=== PATIENT | male | born 1940 | race Caucasian/White ===

== ENCOUNTER 2017-06-25 08:00 | Outpatient (CLI) | payer MEDICARE, OTHER ==
[2017-06-25 14:07] LABS: ALBUMIN/GLOBULIN RATIO 1.7 (1.0-2.2); BILIRUBIN,TOTAL 0.8 mg/dL (0.2-1.0); BUN - BLOOD UREA NITROGEN 15 mg/dL (6-20); CALCIUM 9.1 mg/dL (8.5-10.3); CARBON DIOXIDE - CO2 26 mmol/L (21-32); CHLORIDE 106 mmol/L (101-111); CHOL/HDL RATIO 3.7 (<5.0); CHOLESTEROL 190 mg/dL; CREATININE 0.9 mg/dL (0.6-1.2); GFR - MDRD 82 (>89); GLUCOSE 105 mg/dL (70-100); HDL CHOLESTEROL 51 mg/dL; LDL/HDL RATIO 2.4 (<3.6); POTASSIUM 4.2 mmol/L (3.5-5.0); SODIUM 139 mmol/L (135-145); TOTAL PROTEIN 6.9 g/dL (6.7-8.2); TRIGLYCERIDES 74 mg/dL; VLDL CHOLESTEROL 15 mg/dL
[2017-06-25 14:45] LABS: BASOPHILS # (AUTO) 0.1 10^3/uL (0.0-0.1); BASOPHILS % (AUTO) 1.1 %; EOSINOPHILS # (AUTO) 0.3 10^3/uL (0.0-0.7); EOSINOPHILS % (AUTO) 4.5 %; HCT - HEMATOCRIT 45.2 % (42.0-52.0); HGB - HEMOGLOBIN 15.2 g/dL (14.0-18.0); LYMPHOCYTES # (AUTO) 1.2 10^3/uL (1.5-3.5); LYMPHOCYTES % (AUTO) 19.5 %; MEAN CORPUSCULAR HEMOGLOBIN 30.6 pg (27.0-31.0); MEAN CORPUSCULAR HGB CONC 33.6 g/dL (32.0-36.0); MEAN CORPUSCULAR VOLUME 91.2 fL (80.0-94.0); MEAN PLATELET VOLUME 9.4 fL (7.4-11.4); MONOCYTES # (AUTO) 0.5 10^3/uL (0.0-1.0); MONOCYTES % (AUTO) 8.9 %; NEUTROPHILS # (AUTO) 3.9 10^3/uL (1.5-6.6); RED BLOOD COUNT 4.96 10^6/uL (4.70-6.10); RED CELL DISTRIBUTION WIDTH 14.2 % (12.0-15.0); UNCORRECTED WHITE BLOOD COUNT 5.9 x10^3/uL; WHITE BLOOD COUNT 5.9 x10^3/uL (4.8-10.8)
== END 2017-06-25 08:01 | disposition home or self-care (01) ==
LOC: LAB.WCP 08:00
PROVIDERS: ATTEND Physician Assistant Medical
DX: I48.91 Unspecified atrial fibrillation (principal); I10 Essential (primary) hypertension; Z12.5 Encounter for screening for malignant neoplasm of prostate; R73.02 Impaired glucose tolerance (oral); E78.5 Hyperlipidemia, unspecified
CPT/HCPCS: 36415; 80053; 80061; 84443; 85025; G0103; 84153

== ENCOUNTER 2017-10-07 08:00 | Outpatient (CLI) | payer MEDICARE, OTHER ==
[2017-10-07 18:41] LABS: BASOPHILS # (AUTO) 0.1 10^3/uL (0.0-0.1); EOSINOPHILS # (AUTO) 0.2 10^3/uL (0.0-0.7); HCT - HEMATOCRIT 46.1 % (42.0-52.0); LYMPHOCYTES # (AUTO) 1.4 10^3/uL (1.5-3.5); LYMPHOCYTES % (AUTO) 17.1 %; MEAN CORPUSCULAR HEMOGLOBIN 30.4 pg (27.0-31.0); MEAN CORPUSCULAR HGB CONC 32.5 g/dL (32.0-36.0); MEAN CORPUSCULAR VOLUME 93.4 fL (80.0-94.0); MEAN PLATELET VOLUME 9.4 fL (7.4-11.4); MONOCYTES # (AUTO) 0.6 10^3/uL (0.0-1.0); MONOCYTES % (AUTO) 7.6 %; NEUTROPHILS # (AUTO) 5.6 10^3/uL (1.5-6.6); NEUTROPHILS % (AUTO) 71.3 %; NUCLEATED RED BLOOD CELLS AUTO 0.1 /100WBC; RED BLOOD COUNT 4.93 10^6/uL (4.70-6.10); RED CELL DISTRIBUTION WIDTH 13.9 % (12.0-15.0); UNCORRECTED WHITE BLOOD COUNT 7.9 x10^3/uL; WHITE BLOOD COUNT 7.9 x10^3/uL (4.8-10.8)
[2017-10-07 18:56] LABS: ALBUMIN/GLOBULIN RATIO 1.5 (1.0-2.2); BILIRUBIN,TOTAL 0.8 mg/dL (0.2-1.0); CALCIUM 9.1 mg/dL (8.5-10.3); CREATININE 0.9 mg/dL (0.6-1.2); POTASSIUM 3.7 mmol/L (3.5-5.0)
== END 2017-10-07 23:59 ==
LOC: LAB.WCP 08:00
PROVIDERS: ATTEND Family Medicine
DX: R31.9 Hematuria, unspecified (principal)
CPT/HCPCS: 36415; 80053; 85025

== ENCOUNTER 2017-10-14 13:12 | Outpatient (CLI) | payer MEDICARE, OTHER ==
[2017-10-14 19:18] LABS: BASOPHILS # (AUTO) 0.1 10^3/uL (0.0-0.1); BASOPHILS % (AUTO) 0.9 %; EOSINOPHILS # (AUTO) 0.3 10^3/uL (0.0-0.7); EOSINOPHILS % (AUTO) 3.4 %; HGB - HEMOGLOBIN 15.3 g/dL (14.0-18.0); LYMPHOCYTES # (AUTO) 1.5 10^3/uL (1.5-3.5); LYMPHOCYTES % (AUTO) 20.3 %; MEAN CORPUSCULAR HEMOGLOBIN 30.2 pg (27.0-31.0); MEAN CORPUSCULAR HGB CONC 32.6 g/dL (32.0-36.0); MEAN CORPUSCULAR VOLUME 92.7 fL (80.0-94.0); MEAN PLATELET VOLUME 9.5 fL (7.4-11.4); MONOCYTES # (AUTO) 0.4 10^3/uL (0.0-1.0); MONOCYTES % (AUTO) 5.5 %; NEUTROPHILS # (AUTO) 5.1 10^3/uL (1.5-6.6); NEUTROPHILS % (AUTO) 69.9 %; PLT - PLATELET COUNT 174 10^3/uL (130-450); RED BLOOD COUNT 5.06 10^6/uL (4.70-6.10); RED CELL DISTRIBUTION WIDTH 13.5 % (12.0-15.0); WHITE BLOOD COUNT 7.3 x10^3/uL (4.8-10.8)
[2017-10-14 19:27] LABS: CALCIUM 9.5 mg/dL (8.5-10.3); CREATININE 0.9 mg/dL (0.6-1.2)
[2017-10-14 19:53] LABS: BILIRUBIN,URINE NEGATIVE (NEGATIVE); GLUCOSE, URINE (UA) NEGATIVE (NEGATIVE); KETONES,URINE (UA) NEGATIVE (NEGATIVE); LEUKOCYTE ESTERASE, URINE NEGATIVE (NEGATIVE); NITRITE,URINE NEGATIVE (NEGATIVE); OCCULT BLOOD,URINE NEGATIVE (NEGATIVE); PROTEIN,URINE NEGATIVE (NEGATIVE); UROBILINOGEN,URINE 0.2 (NORMAL) E.U./dL (NORMAL)
[2017-10-14 20:05] LABS: CLARITY,URINE CLEAR (CLEAR)
[2017-10-14 20:08] LABS: BACTERIA,URINE None Seen /HPF (None Seen); RBC,URINE None Seen /HPF (0-5); SQUAMOUS EPITHELIAL CELL,UR NONE SEEN (<= Few)
== END 2017-10-14 13:13 | disposition home or self-care (01) ==
LOC: LAB.WCP 13:12
PROVIDERS: ATTEND Family Medicine
DX: R31.9 Hematuria, unspecified (principal)
CPT/HCPCS: 36415; 80048; 81001; 85025

== ENCOUNTER 2017-10-15 06:50 | Outpatient (CLI) | payer MEDICARE, OTHER ==
[2017-10-15] MEDS ORDERED: IOPAMIDOL-300 100 ML VIAL ONE (07:26)
[2017-10-15] MEDS ORDERED: IOPAMIDOL-300 100 ML VIAL IVP ONE (07:47)
--- NOTE | 2017-10-19 11:30 | CT Report ---
DATE OF SERVICE: 10/15/2017 CT ABDOMEN AND PELVIS WITH AND WITHOUT CONTRAST: 10/15/2017 CLINICAL INDICATION: Hematuria. TECHNIQUE: Axial CT images of the abdomen and pelvis were obtained prior to and following 100 mL Iso kevin 300 intravenously using split bolus technique. In accordance with CT protocol optimization, one or more of the following dose reduction techniques w ere utilized for this exam: Automated exposure control, adjustment of mA and/or KV based on patient size , or use of iterative reconstructive technique. COMPARISON: No previous CT is available for comparison. FINDINGS Limited evaluation of the lung bases is unremarkable. ABDOMEN: On the unenhanced images, there is no evidence of nephrolithiasis or hydronephrosis. The p atient is status post cholecystectomy. The kidneys demonstrate symmetric uptake and excretion of contrast. No focal parenchymal lesion or collecting system lesion is identified. The liver, spleen, pancreas and adrena l glands appear unremarkable. No bowel dilatation, free gas, or free fluid is present. PELVIS: The prostate is enlarged, and indents the bladder base. No distal ureteric lesion is identi fied. No definite bladder wall lesion is seen. No pelvic adenopathy or free fluid is present. Osseous structures demonstrate degenerative changes. IMPRESSION: No evident etiology for the patient's hematuria. Consider correlation with cystoscopy. TD: 10/15/2017 21:41
== END 2017-10-15 06:51 | disposition home or self-care (01) ==
LOC: DI 06:50
PROVIDERS: ATTEND Family Medicine
DX: R31.9 Hematuria, unspecified (principal)
CPT/HCPCS: 74178; Q9967

== ENCOUNTER 2017-10-19 08:40 | Outpatient (CLI) | payer MEDICARE, OTHER | END 2017-10-19 08:41 | disposition home or self-care (01) | LOC: SC 08:40 | PROVIDERS: ATTEND Nurse Practitioner Family | DX: G47.33 Obstructive sleep apnea (adult) (pediatric) (principal); G47.31 Primary central sleep apnea | CPT/HCPCS: 99213; G0463; 99212 ==

== ENCOUNTER 2018-11-24 10:21 | Outpatient (CLI) | payer MEDICARE, OTHER | END 2018-11-24 10:22 | disposition home or self-care (01) | LOC: SC 10:21 | PROVIDERS: ATTEND Nurse Practitioner Family | DX: G47.33 Obstructive sleep apnea (adult) (pediatric) (principal) | CPT/HCPCS: 99213; G0463; 99212 ==

== ENCOUNTER 2018-12-22 08:00 | Outpatient (CLI) | payer MEDICARE, OTHER ==
[2018-12-22 14:13] LABS: ALBUMIN 4.4 g/dL (3.2-5.5); ALBUMIN/GLOBULIN RATIO 1.7 (1.0-2.2); ALKALINE PHOSPHATASE 40 IU/L (42-121); ALT ALANINE AMINOTRANSFERASE 24 IU/L (10-60); AST ASPARTATE AMINOTRANSFERASE 24 IU/L (10-42); BILIRUBIN,TOTAL 0.8 mg/dL (0.2-1.0); BUN - BLOOD UREA NITROGEN 15 mg/dL (6-20); CALCIUM 9.4 mg/dL (8.5-10.3); CARBON DIOXIDE - CO2 29 mmol/L (21-32); CHLORIDE 104 mmol/L (101-111); CHOL/HDL RATIO 3.1 (<5.0); CHOLESTEROL 179 mg/dL; GFR - MDRD 72 (>89); GLUCOSE 96 mg/dL (70-100); HDL CHOLESTEROL 57 mg/dL; LDL CHOLESTEROL,CALCULATED 104 mg/dL; LDL/HDL RATIO 1.8 (<3.6); SODIUM 140 mmol/L (135-145); VLDL CHOLESTEROL 18 mg/dL
== END 2018-12-22 23:59 ==
LOC: LAB.WCP 08:00
PROVIDERS: ATTEND Family Medicine
DX: E78.5 Hyperlipidemia, unspecified (principal); C61 Malignant neoplasm of prostate
CPT/HCPCS: 36415; 80053; 80061; 83721; 84153

== ENCOUNTER 2020-12-13 08:00 | Outpatient (CLI) | payer MEDICARE, OTHER ==
[2020-12-13 11:52] LABS: BASOPHILS # (AUTO) 0.1 10^3/uL (0.0-0.1); BASOPHILS % (AUTO) 1.4 %; EOSINOPHILS # (AUTO) 0.2 10^3/uL (0.0-0.7); EOSINOPHILS % (AUTO) 4.8 %; HCT - HEMATOCRIT 47.6 % (42.0-52.0); HGB - HEMOGLOBIN 15.9 g/dL (14.0-18.0); LYMPHOCYTES # (AUTO) 1.4 10^3/uL (1.5-3.5); LYMPHOCYTES % (AUTO) 28.3 %; MEAN CORPUSCULAR HEMOGLOBIN 31.2 pg (27.0-31.0); MEAN CORPUSCULAR HGB CONC 33.4 g/dL (32.0-36.0); MEAN CORPUSCULAR VOLUME 93.3 fL (80.0-94.0); MEAN PLATELET VOLUME 11.1 fL (7.4-11.4); MONOCYTES # (AUTO) 0.5 10^3/uL (0.0-1.0); NEUTROPHILS # (AUTO) 2.8 10^3/uL (1.5-6.6); NEUTROPHILS % (AUTO) 56.1 %; PLT - PLATELET COUNT 188 10^3/uL (130-450); RED CELL DISTRIBUTION WIDTH 13.4 % (12.0-15.0)
[2020-12-13 12:44] LABS: ALBUMIN 4.1 g/dL (3.2-5.5); ALBUMIN/GLOBULIN RATIO 1.5 (1.0-2.2); ALKALINE PHOSPHATASE 33 IU/L (42-121); ALT ALANINE AMINOTRANSFERASE 24 IU/L (10-60); AST ASPARTATE AMINOTRANSFERASE 21 IU/L (10-42); BILIRUBIN,TOTAL 0.7 mg/dL (0.2-1.0); BUN - BLOOD UREA NITROGEN 19 mg/dL (6-20); CALCIUM 9.3 mg/dL (8.5-10.3); CARBON DIOXIDE - CO2 25 mmol/L (21-32); CHLORIDE 104 mmol/L (101-111); CHOLESTEROL 209 mg/dL; GFR - MDRD 72 (>89); GLUCOSE 99 mg/dL (70-100); HDL CHOLESTEROL 69 mg/dL; LDL CHOLESTEROL,CALCULATED 124 mg/dL; LDL/HDL RATIO 1.8 (<3.6); SODIUM 138 mmol/L (135-145); TOTAL PROTEIN 6.8 g/dL (6.7-8.2); TRIGLYCERIDES 78 mg/dL; VLDL CHOLESTEROL 16 mg/dL
[2020-12-13 12:46] LABS: THYROID STIMULATING HORMONE 3.35 uIU/mL (0.34-5.60)
== END 2020-12-13 23:59 | disposition home or self-care (01) ==
LOC: LAB.WCP 08:00
PROVIDERS: ATTEND Family Medicine
DX: I10 Essential (primary) hypertension (principal); E78.5 Hyperlipidemia, unspecified; Z13.9 Encounter for screening, unspecified
CPT/HCPCS: 36415; 80053; 80061; 83721; 84443; 85025

== ENCOUNTER 2021-08-27 12:37 | Outpatient (CLI) | payer MEDICARE, OTHER ==
--- NOTE | 2021-08-27 13:25 | SLEEP CARE CONSULTATION ---
Information from patient questionnaire entered by Angella Mccartney MA. I have reviewed and concur with the information entered by Angella Mccartney MA. This document represents the service I personally performed and the decisions made by , Ghazala Jiménez ARNP. History of Present Illness Service Date and Time: 08/27/2021 1237 Previous diagnosis: Severe, Obstructive Sleep Apnea-Hypopnea Syndrome, Central Sleep Apnea-Hypopnea Syndrome AHI: 34.5 Reason for follow up: annual Equipment type: CPAP Equipment obtained from: [employer] (they no longer do supplies) Mask style: Nasal (over the nose) Backup mask available: No (will need to keep old mask once replaced) Last cushion change: 3 months HPI additional information: NITESH KRAUS was diagnosed to have severe, AHI 34.5, obstructive sleep apnea- hypopnea syndrome and returned today for CPAP therapy annual follow-up. CPAP Compliance Data - Data Reviewed with Patient Average duration of nightly device use: 2 hours 26 minutes Compliance rate %: 8.9 Current pressure setting (cmH2O): 11-18 Average residual AHI: 2.0 Central apnea: 1.0 Obstructive apnea: 0.5 Hypopnea: 0.5 Average large leak: 3 seconds Compliance data discussion: He stopped using his CPAP about a month or so since he heard about the recall on his CPAP device. Subjective Missed days of use due to: reports: other (recall on device) Patient concerns: denies: aerophagia, mask discomfort, air blowing in eyes, mask leak noise, condensation in mask/hose, nasal congestion, dry mouth, nose, throat, epistaxis, other Observed to snore while using device: No Current pressure setting perceived as: comfortable On therapy, patient: reports: other (He doesn't notice a difference since stopped using CPAP). denies: drowsiness while driving Initial [place] Sleepiness Scale score: 8 (2013) Current [place] Sleepiness Scale score: 0 (2020) Allergies and Home Medications Home medication list reviewed: Yes (no changes) Review of Systems Review of systems same as previous: Yes (no changes) Physical Exam Heart Rate: 57 O2 Saturation: 98 Height: 5 ft 6 in Weight: 191 lb Body Mass Index: 30.8 BMI Classification: Obese Impression and Plan 1. Obstructive Sleep Apnea-Hypopnea Syndrome, severe, with poor treatment compliance and good apnea control. Patient has significant improvement of sleep apnea on the CPAP therapy. Patient stopped using his device once he heard about the recall. He had been using it intermittently before this. He comes in to see if he still needs the CPAP and how to get a new one. Patient has already registered their device for the recall. Patient denies any black particles seen in machine or hoses, any unusual odors coming from device. Patient has not experienced any physical symptoms such as upper airway irritation, headache, skin or eye irritation, asthma, nausea/vomiting, difficulty breathing or chest pain. If patient is not able to sleep due to waking up choking, gasping for air or other respiratory distress that they may decide to continue using it until it is either replaced or repaired. Since the patients current machine is at least 5 years old the patient is opting to update their device with a device that is not on the recall. Patient voiced understanding and agreement with plan. Patient's apnea severity and rationale for treatment to reduce apnea, improve sleep quality and reduce cardiovascular and cerebrovascular events was reviewed. I also reviewed the benefit of consistent device use of CPAP for arrhythmia. Patient has gained some weight since his last visit. Patient was encouraged to lose weight for their overall health and to reduce apneas. * Continue auto CPAP pressure at 11-18 cmH2O * Update device * Transfer DME * Update supplies as needed * Notify me if snoring with mask or feeling that the pressure is too much or too little * Attempt to lose weight * Call this office if any problems using CPAP * Return for follow up one month after obtaining new device, or sooner if ashley rns arise Counseling Topics: Spare mask, Weight loss health impact Visit Type: In Office Time Spent with Patient (minutes): 23 Provider Statement: I spent 100% of the Face to Face Visit with the patient with greater than 50% spent counseling the patient and coordination of care.
== END 2021-08-27 12:38 | disposition home or self-care (01) ==
LOC: SC 12:37
PROVIDERS: ATTEND Nurse Practitioner Family
DX: G47.33 Obstructive sleep apnea (adult) (pediatric) (principal)
CPT/HCPCS: 99213; G0463; 99212

== ENCOUNTER 2023-01-05 08:01 | Outpatient (CLI) | payer MEDICARE ==
[2023-01-05 12:05] LABS: BASOPHILS # (AUTO) 0.1 10^3/uL (0.0-0.1); BASOPHILS % (AUTO) 1.4 %; EOSINOPHILS # (AUTO) 0.3 10^3/uL (0.0-0.7); HCT - HEMATOCRIT 45.4 % (42.0-52.0); HGB - HEMOGLOBIN 14.7 g/dL (14.0-18.0); LYMPHOCYTES # (AUTO) 1.2 10^3/uL (1.5-3.5); MEAN CORPUSCULAR HEMOGLOBIN 29.9 pg (27.0-31.0); MEAN CORPUSCULAR HGB CONC 32.4 g/dL (32.0-36.0); MEAN CORPUSCULAR VOLUME 92.5 fL (80.0-94.0); MEAN PLATELET VOLUME 10.9 fL (7.4-11.4); MONOCYTES # (AUTO) 0.6 10^3/uL (0.0-1.0); MONOCYTES % (AUTO) 8.7 %; NEUTROPHILS # (AUTO) 4.3 10^3/uL (1.5-6.6); NEUTROPHILS % (AUTO) 67.3 %; PLT - PLATELET COUNT 190 10^3/uL (130-450); RED BLOOD COUNT 4.91 10^6/uL (4.70-6.10); RED CELL DISTRIBUTION WIDTH 13.2 % (12.0-15.0); WHITE BLOOD COUNT 6.4 x10^3/uL (4.8-10.8)
[2023-01-05 12:30] LABS: ALBUMIN/GLOBULIN RATIO 1.5 (1.0-2.2); ALKALINE PHOSPHATASE 28 IU/L (42-121); ALT ALANINE AMINOTRANSFERASE 22 IU/L (10-60); AST ASPARTATE AMINOTRANSFERASE 22 IU/L (10-42); BUN - BLOOD UREA NITROGEN 15 mg/dL (6-20); CALCIUM 8.9 mg/dL (8.5-10.3); CARBON DIOXIDE - CO2 24 mmol/L (21-32); CHLORIDE 107 mmol/L (101-111); CHOL/HDL RATIO 2.8 (<5.0); CHOLESTEROL 206 mg/dL; GFR - MDRD 72 (>89); GLUCOSE 114 mg/dL (70-100); HDL CHOLESTEROL 74 mg/dL; LDL CHOLESTEROL,CALCULATED 124 mg/dL; LDL/HDL RATIO 1.7 (<3.6); POTASSIUM 4.2 mmol/L (3.5-5.0); SODIUM 138 mmol/L (135-145); TOTAL PROTEIN 6.6 g/dL (6.7-8.2); TRIGLYCERIDES 42 mg/dL; VLDL CHOLESTEROL 8 mg/dL
== END 2023-01-05 08:02 | disposition home or self-care (01) ==
LOC: LAB.N 08:01
PROVIDERS: ATTEND Physician Assistant
DX: I10 Essential (primary) hypertension (principal); E78.5 Hyperlipidemia, unspecified
CPT/HCPCS: 36415; 80053; 80061; 83721; 85025

== ENCOUNTER 2023-09-17 13:50 | Outpatient (CLI) | payer MEDICARE ==
--- NOTE | 2023-09-17 14:23 | Sleep Patient Instructions ---
Sleep Center Visit Summary - Patient Visit Information Reason for Visit: Annual Visit - Patient Instructions Additional Instructions: You will continue with CPAP therapy with pressure set at 11-18 cmH2O. A supply prescription will be updated with your DME. We encourage you to continue to try to lose weight. Please follow up with the sleep care office in 1 year. - Clinic Information Contact: [facility] [address] [place] [address] [email or web address] T: [phone]
--- NOTE | 2023-09-17 14:28 | SLEEP CARE CONSULTATION ---
Information from patient questionnaire entered by Madyson Morataya. I have reviewed and concur with the information entered by Madyson Morataya. This document represents the service I personally performed and the decisions made by me, Ghazala Jiménez ARNP. History of Present Illness Service Date and Time: 09/17/2023 1350 Previous diagnosis: Severe, Obstructive Sleep Apnea-Hypopnea Syndrome, Central Sleep Apnea-Hypopnea Syndrome AHI: 34.5 Reason for follow up: annual (LAST SEEN 08/2021) Accompanied by: Spouse (Anna) Equipment type: CPAP (ResMed Airsense 11, 01/2022; SD CARD NEEDED) Equipment obtained from: [employer] (getting supplies) Mask style: Nasal (over the nose) Mask brand: Respironics Backup mask available: Yes Last cushion change: couple weeks HPI additional information: NITESH KRAUS was diagnosed to have severe, AHI 34.5, obstructive/central sleep apnea-hypopnea syndrome and returned today for CPAP therapy annual follow-up. CPAP Compliance Data - Data Reviewed with Patient Average duration of nightly device use: 6 hours 54 minutes Compliance rate %: 94 (362/365 days used) Current pressure setting (cmH2O): 11-18 Average residual AHI: 1.8 Central apnea: 1.3 Obstructive apnea: 0.1 Hypopnea: 0.3 Average large leak: 3 L/min Subjective Missed days of use due to: reports: travel Patient concerns: denies: aerophagia, mask discomfort, air blowing in eyes, mask leak noise, condensation in mask/hose, nasal congestion, dry mouth, nose, throat, epistaxis Observed to snore while using device: No Current pressure setting perceived as: comfortable On therapy, patient: reports: sleeping better, awakening more refreshed, being more awake and alert during the day, more rested overall. denies: drowsiness while driving Initial [place] Sleepiness Scale score: 8 (2013) Current [place] Sleepiness Scale score: 3 (09/17/23) Allergies and Home Medications Known drug allergies: No Drug allergies reviewed: Yes Home medication list reviewed: Yes (no changes) Review of Systems Review of systems same as previous: Yes (NO CHANGE; little bit of memory loss) Physical Exam Vital signs obtained and entered by: MADYSON Manzo MA Blood Pressure: 102/60 (LEFT ARM) Cuff size: regular Heart Rate: 61 O2 Saturation: 99 Height: 5 ft 6 in Weight: 186 lb 6.4 oz Weight change since last visit: 5 lb loss Body Mass Index: 30.0 BMI Classification: Obese Impression and Plan 1. Obstructive/Central Sleep Apnea-Hypopnea Syndrome, severe, with good treatment compliance and good apnea control. On CPAP therapy, the patient has better sleep quality and is more rested overall. Patient states he is doing well with the machine and ask if he can take a break from using the CPAP. I reviewed with him that the CPAP is controlling his sleep apnea very well and I encouraged him to continue using his CPAP therapy. He voiced understanding and agreed with this plan. Patient has significant improvement of their sleep apnea and is satisfied with current CPAP therapy. Patient denies problems with oral dryness, nasal congestion, epistaxis, skin irritation or aerophagia. Patient's apnea severity and rationale for treatment to reduce apnea, improve sleep quality and reduce cardiovascular and cerebrovascular events was reviewed. I also reviewed the benefit of consistent device use of CPAP for arrhythmia. 2. Obesity, unspecified. Currently patients BMI is 30. Obesity increases the risk of apnea, CPAP pressure requirements and overall health risks especially cardiovascular and diabetes. Thus patient is advised to continue to try to lose weight. * Continue auto CPAP pressure at 11-18 cmH2O * Update supply prescription * Notify me if snoring with mask or feeling that the pressure is too much or too little * Attempt to lose weight * Call this office if any problems using CPAP * Return for follow up in 12 months, or sooner if concerns arise Counseling Topics: Spare mask, Weight loss health impact Prescriptions: Device supplies Visit Type: In Office Time Spent with Patient (minutes): 22 Provider Statement: I spent 100% of the Face to Face Visit with the patient with greater than 50% spent counseling the patient and coordination of care.
[2023-09-17 14:33] VITALS: BP 102/60; O2SAT 99
== END 2023-09-17 13:51 | disposition home or self-care (01) ==
LOC: SC 13:50
PROVIDERS: ATTEND Nurse Practitioner Family
DX: G47.33 Obstructive sleep apnea (adult) (pediatric) (principal); G47.31 Primary central sleep apnea; E66.9 Obesity, unspecified; Z68.30 Body mass index [BMI] 30.0-30.9, adult
CPT/HCPCS: 99213; G0463; 99212

== ENCOUNTER 2024-05-09 07:42 | Outpatient (CLI) | payer MEDICARE ==
[2024-05-09 07:53] LABS: BASOPHILS # (AUTO) 0.1 10^3/uL (0.0-0.1); BASOPHILS % (AUTO) 1.3 %; EOSINOPHILS # (AUTO) 0.3 10^3/uL (0.0-0.7); EOSINOPHILS % (AUTO) 5.2 %; HCT - HEMATOCRIT 45.8 % (42.0-52.0); LYMPHOCYTES # (AUTO) 1.3 10^3/uL (1.5-3.5); LYMPHOCYTES % (AUTO) 20.6 %; MEAN CORPUSCULAR HEMOGLOBIN 30.5 pg (27.0-31.0); MEAN CORPUSCULAR HGB CONC 32.8 g/dL (32.0-36.0); MEAN CORPUSCULAR VOLUME 93.1 fL (80.0-94.0); MEAN PLATELET VOLUME 10.1 fL (7.4-11.4); MONOCYTES # (AUTO) 0.6 10^3/uL (0.0-1.0); NEUTROPHILS % (AUTO) 62.8 %; PLT - PLATELET COUNT 180 10^3/uL (130-450); RED BLOOD COUNT 4.92 10^6/uL (4.70-6.10); RED CELL DISTRIBUTION WIDTH 13.5 % (12.0-15.0); WHITE BLOOD COUNT 6.4 x10^3/uL (4.8-10.8)
[2024-05-09 08:07] LABS: ALBUMIN 4.4 g/dL (3.2-5.5); ALBUMIN/GLOBULIN RATIO 1.8 (1.0-2.2); ALKALINE PHOSPHATASE 35 IU/L (42-121); ALT ALANINE AMINOTRANSFERASE 21 IU/L (10-60); AST ASPARTATE AMINOTRANSFERASE 19 IU/L (10-42); BILIRUBIN,TOTAL 0.7 mg/dL (0.2-1.0); BUN - BLOOD UREA NITROGEN 14 mg/dL (6-20); CALCIUM 9.5 mg/dL (8.5-10.3); CARBON DIOXIDE - CO2 31 mmol/L (21-32); CHLORIDE 104 mmol/L (101-111); CHOL/HDL RATIO 3.3 (<5.0); CHOLESTEROL 217 mg/dL; GFR - MDRD 72 (>89); GLUCOSE 110 mg/dL (74-104); HDL CHOLESTEROL 65 mg/dL; LDL CHOLESTEROL,CALCULATED 136 mg/dL; LDL/HDL RATIO 2.1 (<3.6); POTASSIUM 4.5 mmol/L (3.5-4.5); SODIUM 139 mmol/L (135-145); TOTAL PROTEIN 6.9 g/dL (6.4-8.9); TRIGLYCERIDES 78 mg/dL; VLDL CHOLESTEROL 16 mg/dL
== END 2024-05-09 07:43 | disposition home or self-care (01) ==
LOC: LAB 07:42
PROVIDERS: ATTEND Physician Assistant
DX: I10 Essential (primary) hypertension (principal); E78.5 Hyperlipidemia, unspecified
CPT/HCPCS: 36415; 80053; 80061; 83721; 85025

== ENCOUNTER 2024-05-26 10:38 | Outpatient (CLI) | payer MEDICARE ==
[2024-05-26 20:07] LABS: ESTIMATED AVERAGE GLUCOSE 111 mg/dL (70-100); HEMOGLOBIN A1c% 5.5 % (4.27-6.07)
== END 2024-05-26 10:39 | disposition home or self-care (01) ==
LOC: LAB.N 10:38
PROVIDERS: ATTEND Physician Assistant
DX: G31.84 Mild cognitive impairment of uncertain or unknown etiology (principal); R73.01 Impaired fasting glucose; Z12.5 Encounter for screening for malignant neoplasm of prostate
CPT/HCPCS: 36415; 82607; 83036; G0103; 84153

== ENCOUNTER 2024-06-09 10:00 | Outpatient (CLI) | payer MEDICARE ==
--- NOTE | 2024-06-09 18:10 | MRI Report ---
PROCEDURE: Brain WO INDICATIONS: COGNITIVE IMPAIRMENT TECHNIQUE: Noncontrast axial T1 spin echo, axial T2 fast spin echo, sagittal and axial FLAIR, coronal T2 fast sp in echo, axial gradient echo, axial diffusion and ADC through the brain. COMPARISON: None. FINDINGS: Image quality: Excellent. CSF Spaces: Basal cisterns are patent. No extra-axial fluid collections. Ventricles are normal in size and shape. Brain: No intracranial masses or hemorrhage. [place]/white matter interface is normal. Brainstem appe ars normal. Diffusion-weighted images demonstrate no acute ischemic insult. No chronic ischemic ins ults. Normal intravascular flow voids are present. Moderate reversible volume loss is seen. Minimal to mild chronic small vessel ischemic change can be seen. Skull and face: Calvarium has normal marrow signal. Orbits appear normal. Sinuses: Patchy areas of moderate mucosal thickening can be seen within the ethmoid air cells. Sinus es and mastoids are otherwise relatively clear. IMPRESSION: Brain within normal limits for age, with brain parenchymal volume loss and chronic small vessel ische fredo change seen. No prior territorial infarction can be seen. No findings of acute or subacute infarction are seen. Reviewed by: Logan Hale MD on 06/09/2024 5:08 PM JIM Approved by: Logan Hale MD on 06/09/2024 5:08 PM JIM Station ID: [id number]
== END 2024-06-09 10:01 | disposition home or self-care (01) ==
LOC: DI 10:00
PROVIDERS: ATTEND Physician Assistant
DX: I67.82 Cerebral ischemia (principal); G31.84 Mild cognitive impairment of uncertain or unknown etiology; H55.09 Other forms of nystagmus